=== PATIENT | female | born 1975 | race Caucasian/White ===

== ENCOUNTER 2018-08-09 00:11 | Emergency (ER) | payer OTHER ==
[2018-08-09] MEDS ORDERED: ONDANSETRON 4 MG/2 ML VIAL IVP STA (01:15)
[2018-08-09] MEDS ORDERED: SODIUM CHLORIDE 0.9% 1,000 ML IV ONE (01:15)
[2018-08-09] MEDS ORDERED: LORazepam 2 MG/ML VIAL IVP STA ×2 (01:16→07:54)
[2018-08-09] MEDS ORDERED: FAMOTIDINE 20 MG/2 ML VIAL IVP STA (01:16)
--- NOTE | 2018-08-09 01:17 | ED Physician Documentation ---
PD HPI NVD - Stated complaint Stated Complaint: ETOH DETOX - Chief complaint Chief Complaint: General - History obtained from History obtained from: Patient - History of Present Illness Timing - onset: How many days ago (she states she had been sober for months and started drinking 5 days ago due to anxiety. She has been having nausea and vomiting for couple days. Concerned about withdrawal symptoms if she stops drinking.) Timing - duration: Days Timing - details: Gradual onset Associated symptoms: Abdominal pain (upper abd). No: Fever, Hematemesis, Dizzy, Near syncope / syncope Contributing factors: Alcohol use. No: Sick contact Improved by: No: Eating, Vomiting Worsened by: Eating Similar symptoms before: Diagnosis (withdrawal, gastritis. Denies prior pancreatitis.) Recently seen: Not recently seen Review of Systems Constitutional: reports: Myalgias. denies: Fever, Chills Nose: denies: Rhinorrhea / runny nose, Congestion Throat: denies: Sore throat Cardiac: denies: Chest pain / pressure Respiratory: denies: Cough GI: reports: Abdominal Pain, Nausea, Vomiting. denies: Constipation, Diarrhea, Hematemesis, Bloody / black stool : denies: Dysuria, Frequency Skin: denies: Rash Neurologic: reports: Generalized weakness. denies: Near syncope Psychiatric: reports: Depressed, Anxiety. denies: Suicidal, Delusions Endocrine: denies: Weight loss PD PAST MEDICAL HISTORY - Past Medical History Cardiovascular: None Respiratory: None GI: None - Present Medications Home Medications: Ambulatory Orders Medication Instructions Recorded Confirmed Famotidine 20 mg PO DAILY #30 tablet 08/09/18 LORazepam [Ativan] 1 mg PO Q6H PRN #25 tablet 08/09/18 Ondansetron Odt [Zofran] 4 mg TL Q6H PRN #15 tablet 08/09/18 - Allergies Allergies/Adverse Reactions: Allergies Allergy/AdvReac Type Severity Reaction Status Date / Time Penicillins Allergy Unknown Verified 08/09/18 00:32 PD ED PE NORMAL - Vitals Vital signs reviewed: Yes - General General: Alert and oriented X 3, Well developed/nourished, Other (nauseated and appears some anxious) - HEENT HEENT: Pharynx benign. No: Moist mucous membranes - Neck Neck: Supple, no meningeal sign, No adenopathy - Cardiac Cardiac: RRR, No murmur - Respiratory Respiratory: Clear bilaterally - Abdomen Abdomen: Normal bowel sounds, Soft, Non distended, No organomegaly, Other (tender in epigastric area without guarding nor percussion tenderness. ) - Female Female : Deferred - Rectal Rectal: Deferred - Back Back: No CVA TTP - Derm Derm: Normal color, Warm and dry Results - Vitals Vitals: Vital Signs - 24 hr 08/09/18 08/09/18 00:30 02:14 Temperature 37 C Heart Rate 73 70 Respiratory 16 Rate Blood Pressure 142/78 H 137/69 H O2 Saturation 98 99 Oxygen O2 Source Room air - Labs Labs: Laboratory Tests 08/09/18 08/09/18 02:26 02:26 WBC 7.4 RBC 4.27 Hgb 11.6 L Hct 35.3 L MCV 82.6 MCH 27.3 MCHC 33.0 RDW 16.1 H Plt Count 296 MPV 8.9 Neut # (Auto) 4.9 Lymph # (Auto) 1.7 [place] # (Auto) 0.8 Eos # (Auto) 0.0 Baso # (Auto) 0.1 Absolute Nucleated RBC 0.00 Nucleated RBC % 0.0 Sodium 140 Potassium 3.5 Chloride 102 Carbon Dioxide 26 Anion Gap 12.0 BUN 14 Creatinine 1.0 Estimated GFR (MDRD) 61 L Glucose 106 H Calcium 8.0 L Magnesium 2.3 Total Bilirubin 0.6 AST 26 ALT 16 Alkaline Phosphatase 79 Total Protein 8.1 Albumin 4.3 Globulin 3.8 Albumin/Globulin Ratio 1.1 Lipase 26 Ethyl Alcohol 294.3 PD MEDICAL DECISION MAKING - ED course Complexity details: reviewed results, re-evaluated patient (She is feeling better without nausea. She is able to take fluids and small snack. She feels able to try a home with medications for withdrawal.), considered differential, d/w patient Departure - Departure Disposition: 01 Home, Self Care Clinical Impression: Alcoholism Alcohol intoxication Qualifiers: Complication of substance-induced condition: uncomplicated Qualified Code(s): F10.920 - Alcohol use, unspecified with intoxication, uncomplicated Gastritis Qualifiers: Gastritis type: alcoholic Chronicity: acute Gastritis bleeding: without bleeding Qualified Code(s): K29.20 - Alcoholic gastritis without bleeding Condition: Stable Record reviewed to determine appropriate education?: Yes Instructions: ED Alcohol Intoxication, ED Gastritis Prescriptions: Famotidine 20 mg PO DAILY #30 tablet LORazepam [Ativan] 1 mg PO Q6H PRN #25 tablet PRN Reason: Anxiety Ondansetron Odt [Zofran] 4 mg TL Q6H PRN #15 tablet PRN Reason: Nausea / Vomiting Comments: Stop drinking alcohol. Stay well hydrated. Use Lorazepam every 6 hours if needed for withdrawal symptoms (shakiness, anxiety, nausea). Add Zofran for nausea as needed. It sounds like you have an irritated stomach from the alcohol, so take Famotidine to reduce stomach acids and improve the stomach irritation. Small frequent fluids. Add bland foods as tolerated. Follow up with your primary care and also can get help from alcohol treatment resources (AA, Rehab, alcohol treatment programs, etc).
[2018-08-09 02:32] LABS: BASOPHILS # (AUTO) 0.1 10^3/uL (0.0-0.1); BASOPHILS % (AUTO) 0.9 %; EOSINOPHILS % (AUTO) 0.1 %; HGB - HEMOGLOBIN 11.6 g/dL (12.0-16.0); LYMPHOCYTES # (AUTO) 1.7 10^3/uL (1.5-3.5); LYMPHOCYTES % (AUTO) 22.5 %; MEAN CORPUSCULAR HEMOGLOBIN 27.3 pg (27.0-31.0); MEAN CORPUSCULAR VOLUME 82.6 fL (81.0-99.0); MEAN PLATELET VOLUME 8.9 fL (7.9-10.8); MONOCYTES # (AUTO) 0.8 10^3/uL (0.0-1.0); MONOCYTES % (AUTO) 10.2 %; NEUTROPHILS # (AUTO) 4.9 10^3/uL (1.5-6.6); NEUTROPHILS % (AUTO) 66.3 %; PLT - PLATELET COUNT 296 10^3/uL (130-450); RED BLOOD COUNT 4.27 10^6/uL (4.20-5.40); RED CELL DISTRIBUTION WIDTH 16.1 % (12.0-15.0); WHITE BLOOD COUNT 7.4 x10^3/uL (4.8-10.8)
[2018-08-09 02:44] LABS: ALBUMIN 4.3 g/dL (3.2-5.5); ALBUMIN/GLOBULIN RATIO 1.1 (1.0-2.2); BILIRUBIN,TOTAL 0.6 mg/dL (0.2-1.0); MAGNESIUM 2.3 mg/dL (1.7-2.8); TOTAL PROTEIN 8.1 g/dL (6.7-8.2)
[2018-08-09 06:20] VITALS: BP 108/67
[2018-08-09] MEDS ORDERED: GABAPENTIN 100 MG CAPSULE PO STA (07:39)
== END 2018-08-09 10:00 | disposition home or self-care (01) ==
LOC: ED 00:11
DX: F10.220 Alcohol dependence with intoxication, uncomplicated (principal); K29.20 Alcoholic gastritis without bleeding
CPT/HCPCS: 36415; 80053; 80320; 83690; 83735; 85025; 96361; 96374; 96376; 99283; A9270; J2060